=== PATIENT | male | born 1950 | race African-American/Black ===

== ENCOUNTER 2016-08-03 08:43 | Emergency (ER) | payer OTHER ==
[~2016-08-03] VITALS: Wt 95.0 kg
[~2016-08-03 08:43] MED LIST: 0; BICA50TA4 PO; CITA20TA11 PO; FINA5TAB; LOSA25TA5 PO; flomax
[2016-08-03] MEDS: IBUPROFEN 600 MG TAB PO ONE ×2 (10:22→10:23)
[2016-08-03] MEDS ORDERED: HYDROCODONE/APAP (5/325) TAB PO ONE (10:30)
--- NOTE | 2016-08-03 10:38 | ERD ---
ER Documentation Chief Complaint Date/Time DATE: 08/03/16 TIME: 10:18 Chief Complaint LEFT KNEE PAIN X 6 DAYS HPI 66-year-old male complains of left knee pain status post fall 6 days ago. Patient states that he tripped and twisted his left knee while trying to stand up. Patient has been taking aspirin for his left knee pain. Denies any head trauma. Patient has been unable to weight-bear on the left lower extremity since the fall. Denies any fever, chest pain or shortness of breath. Denies paresthesia on the left lower extremity. Patient complained of left knee swelling since the fall and has since subsided. ROS All systems reviewed and are negative except as per history of present illness. Medications Home Meds Active Scripts Acetaminophen* (Tylophen*) 500 Mg Capsule, 1 CAP PO Q6H Y for PAIN AND OR ELEVATED TEMP, #20 CAP Prov:CLAUDIO SPRINGER 08/03/16 Hydrocodone/Acetaminophen (Midway 5-325 Tablet) 1 Each Tablet, 1 TAB PO Q6H Y for PAIN, #14 TAB Prov:CLAUDIO SPRINGER 08/03/16 Reported Medications Finasteride* (Proscar*) 5 Mg Tablet 09/11/13 [flomax] No Conflict Check 09/11/13 Bicalutamide* (Bicalutamide*) 50 Mg Tablet, 50 PO 09/11/13 Losartan Potassium* (Losartan Potassium*) 25 Mg Tablet, PO 09/11/13 Citalopram Hydrobromide* (Celexa*) 20 Mg Tablet, 20 MG PO DAILY for depressioin 09/11/13 [0] No Conflict Check DIDN'T PROVIDE HOME MED LIST UPON ADMISSION 07/10/13 Allergies Allergies: Coded Allergies: No Known Allergies (Verified Allergy, Mild, 08/03/16) PMhx/Soc History of Surgery: Yes (ankle, knee, appendectomy; hernia surgery) Anesthesia Reaction: No Hx Neurological Disorder: No Hx Respiratory Disorders: No Hx Cardiac Disorders: Yes (hypertension) Hx Psychiatric Problems: No Hx Miscellaneous Medical Probl: Yes ( PROSTATE CA) Hx Alcohol Use: Yes (socially) Hx Substance Use: No Hx Tobacco Use: Yes Smoking Status: Current every day smoker Physical Exam Vitals Vital Signs Date Time Temp Pulse Resp B/P Pulse Ox O2 Delivery O2 Flow Rate FiO2 08/03/16 08:45 98.0 109 18 157/82 99 Physical Exam Const: Well-developed, well-nourished, in no acute distress. Sitting in a wheelchair. HEENT: Atraumatic. Normal Conjunctiva. TM intact. External ear is normal, mastoids are nontender clear oropharynx. Supple. Full range of motion. No meningismus. Resp: Clear to auscultation bilaterally Cardio: Regular rate and rhythm, no murmurs Abd: Soft, non tender, non distended. Normal bowel sounds. No McBurney' s point tenderness. No guarding or rigidity. No peritoneal signs. Skin: macular rashes on the distal left leg Back: No midline or flank tenderness Ext: Decreased left knee flexion and extension due to pain. No swelling. Good cap refill on the left toes. Neur: Awake and alert, appropriate for age Results 24 hrs Current Medications Medications (Trade) Dose Ordered Sig/Bart Route PRN Reason Start Time Stop Time Status Last Admin Dose Admin Ibuprofen (Motrin) 600 mg ONCE ONCE PO 08/03/16 10:30 08/03/16 10:31 DC Acetaminophen/ Hydrocodone Bitart (Midway (5/325)) 1 tab ONCE ONCE PO 08/03/16 10:30 08/03/16 10:31 DC 08/03/16 10:55 Procedures/MDM 66-year-old male who was admitted to the emergency department for left knee pain due to trauma. Patient received Midway and left knee x-ray is negative for fracture. Lobito wrap was applied to the left knee. Instructed the patient to keep the left knee elevated at all times and apply ice packs as needed. Patient was discharged home with crutches and a prescription for Midway and ibuprofen. Patient was instructed to see his primary care provider and return to ED for chest pain, shortness of breath, erythema or drainage from the left knee. Differential diagnosis includes left knee fracture, bursitis, cellulitis , joint effusion, septic arthritis. Departure Diagnosis: Primary Impression: Knee pain Laterality: left Chronicity: acute Qualified Code: M25.562 - Acute pain of left knee Additional Impression: Knee injury Encounter type: initial encounter Laterality: left Qualified Code: S89.92XA - Knee injury, left, initial encounter Condition: Good Patient Instructions: Knee Sprain CLAUDIO SPRINGER Aug 03, 2016 10:28
--- NOTE | 2016-08-03 11:45 | RADRPT ---
PROCEDURE: Left knee radiographs. CLINICAL INDICATION: Left knee pain. TECHNIQUE: Three views. Weight bearing. Frontal, lateral, and oblique. COMPARISON: No prior studies are available for comparison. FINDINGS: There is no fracture or dislocation. Vascular calcifications are present consistent with atherosclerosis. Articular surfaces are intact. There is no lytic or blastic lesion. There is no radiopaque foreign body. IMPRESSION: 1. Atherosclerosis. 2. Otherwise normal images of the left knee. RPTAT: QQ .Reynold Rubio MD, Date Time Electronically viewed and signed by .Reynold Rubio MD, on 08/03/2016 11:44 .R/
[2016-08-03] MEDS ORDERED: HYDR-906 PO (12:10)
[2016-08-03] MEDS ORDERED: ACET500C5 PO (12:11)
[2016-08-03 12:45] VITALS: BP 154/86; PULSE 77; RESP 18; TEMP 98
== END 2016-08-03 12:46 | disposition home or self-care (01) ==
LOC: FTE 08:43
DX: S89.92XA Unspecified injury of left lower leg, initial encounter (principal); F17.210 Nicotine dependence, cigarettes, uncomplicated; I10 Essential (primary) hypertension; W01.0XXA Fall on same level from slipping, tripping and stumbling without subsequent striking against object, initial encounter; Y92.9 Unspecified place or not applicable; Z85.46 Personal history of malignant neoplasm of prostate
CPT/HCPCS: 73562

== ENCOUNTER 2016-10-20 11:36 | Emergency (ER) | payer OTHER ==
[~2016-10-20] VITALS: Wt 51.0 kg
[~2016-10-20 11:36] MED LIST changes: +ACET500C5 PO; +HYDR-906 PO
[2016-10-20] MEDS ORDERED: HALOPERIDOL 5 MG INJ IM ONE (12:00)
[2016-10-20] MEDS ORDERED: DIPHTH/TET/ACEL PERTUSS (ADULT) 0.5 ML VIAL IM* ONE (12:00)
[2016-10-20 12:27] LABS: ADD SCAN DIFF NO
[2016-10-20 12:29] LABS: BASOPHILS % 0.3 % (0.0-2.0); EOSINOPHILS % 0.1 % (0.0-7.0); HEMATOCRIT 42.9 % (42.0-52.0); HEMOGLOBIN 14.8 g/dl (14.0-18.0); LYMPHOCYTES # 0.8 10^3/ul (0.8-2.9); LYMPHOCYTES % 8.3 % (15.0-51.0); MEAN CORPUSCULAR HEMOGLOBIN 29.6 pg (29.0-33.0); MEAN CORPUSCULAR HGB CONC 34.5 g/dl (32.0-37.0); MEAN CORPUSCULAR VOLUME 85.8 fl (82.0-101.0); MEAN PLATELET VOLUME 9.8 fl (7.4-10.4); MONOCYTE # 0.9 10^3/ul (0.3-0.9); MONOCYTES % 8.8 % (0.0-11.0); NEUTROPHIL # 8.4 10^3/ul (1.6-7.5); NEUTROPHILS % 82.3 % (39.0-77.0); PLATELET COUNT 150 10^3/UL (140-415); RED CELL DISTRIBUTION WIDTH 13.5 % (11.5-14.5); WHITE BLOOD COUNT 10.2 10^3/ul (4.8-10.8)
[2016-10-20 12:52] LABS: ALBUMIN 4.2 g/dl (3.3-4.9); CHLORIDE 99 mmol/L (97-110)
[2016-10-20 12:53] LABS: POTASSIUM 3.6 mmol/L (3.5-5.1); SODIUM 135 mmol/L (135-144)
[2016-10-20 12:55] LABS: ALANINE AMINOTRANSFERASE 62 IU/L (13-69); ALBUMIN/GLOBULIN RATIO 1.07; ALKALINE PHOSPHATASE 89 IU/L (42-121); ANION GAP 21 (8-16); ASPARTATE AMINO TRANSFERASE 173 IU/L (15-46); BILIRUBIN,INDIRECT 0.2 mg/dl (0-1.1); BILIRUBIN,TOTAL 0.2 mg/dl (0.2-1.3); BLOOD UREA NITROGEN 11 mg/dl (7-20); CALCIUM 8.8 mg/dl (8.4-10.2); CARBON DIOXIDE 19 mmol/L (21-31); CREATININE 0.73 mg/dl (0.61-1.24); GLUCOSE 72 mg/dl (70-220); TOTAL PROTEIN 8.1 g/dl (6.1-8.1)
[2016-10-20 12:56] LABS: ACETAMINOPHEN < 10.0 ug/ml (10.0-30.0); SALICYLATE < 1.0 mg/dl (5.0-30.0)
[2016-10-20 12:58] LABS: INR 1.03; PROTIME 13.5 Sec (12.2-14.2); PT RATIO 1.1
[2016-10-20 13:00] LABS: PARTIAL THROMBOPLASTIN TIME 48.8 Sec (25.0-35.0)
[2016-10-20] MEDS ORDERED: AMLO-147 PO (16:34)
[2016-10-20] MEDS ORDERED: TAMS0.4C2 PO (16:34)
[2016-10-20] MEDS ORDERED: TRAZ50TA18 PO (16:34)
[2016-10-20] MEDS ORDERED: BUPR150T6 PO (16:35)
[2016-10-20 19:34] VITALS: BP 152/92; PULSE 65; RESP 24; TEMP 97.9
--- NOTE | 2016-10-20 19:48 | ERD ---
ER Documentation Chief Complaint Date/Time DATE: 10/20/16 TIME: 19:46 Chief Complaint SEIZURE WITNESSED BY BYSTANDERS WITH ETOH, LEFT HAND LACERATION, BS 65 HPI 66-year-old male who presents altered. He was brought in by ambulance. He is homeless and was found on the ground. His sugar was 65. He had a possible seizure by bystanders. Please note the history and physical exam is limited secondary to the patient's mental status. Review of old medical records show visits for various complaints. ROS All systems reviewed and are negative except as per history of present illness. Medications Home Meds Reported Medications Bupropion Hcl* (Bupropion XL*) 150 Mg Tab.er.24h, 150 MG PO DAILY, TAB.SA 10/20/16 Trazodone Hcl* (Desyrel*) 50 Mg Tab, 50 MG PO QHS, #30 TAB 10/20/16 Tamsulosin Hcl* (Tamsulosin Hcl*) 0.4 Mg Cap.er.24h, 0.4 MG PO HS, CAP 10/20/16 Amlodipine Besylate* (Amlodipine Besylate*) 10 Mg Tablet, 10 MG PO DAILY, #30 TAB 10/20/16 Allergies Allergies: Coded Allergies: No Known Allergy (Unverified , 10/20/16) PMhx/Soc Medical and Surgical Hx: Unable to obtain Hx Psychiatric Problems: Yes Hx Miscellaneous Medical Probl: Yes Hx Alcohol Use: Yes Hx Tobacco Use: No Smoking Status: Never smoker FmHx Unable to obtain Physical Exam Vitals Vital Signs Date Time Temp Pulse Resp B/P Pulse Ox O2 Delivery O2 Flow Rate FiO2 10/20/16 19:34 97.9 65 24 152/92 97 Room Air 10/20/16 16:45 62 24 98 Room Air 10/20/16 13:49 49 95 Room Air 10/20/16 12:04 98.9 122 20 146/89 97 Physical Exam Const: Altered Head: Atraumatic Eyes: Normal Conjunctiva ENT: Normal External Ears, Nose and Mouth. Neck: Full range of motion..~ No meningismus. Resp: Clear to auscultation bilaterally Cardio: Regular rate and rhythm, no murmurs Abd: Soft, non tender, non distended. Normal bowel sounds Skin: Abrasion to the posterior portion of the left hand without laceration Back: No midline or flank tenderness Ext: No cyanosis, or edema Neur: Awake but confused Result Diagram: 10/20/16 1220 10/20/16 1220 Results 24 hrs Laboratory Tests Test 10/20/16 12:20 White Blood Count 10.210^3/ul Red Blood Count 5.0010^6/ul Hemoglobin 14.8g/dl Hematocrit 42.9% Mean Corpuscular Volume 85.8fl Mean Corpuscular Hemoglobin 29.6pg Mean Corpuscular Hemoglobin Concent 34.5g/dl Red Cell Distribution Width 13.5% Platelet Count 66511^3/UL Mean Platelet Volume 9.8fl Neutrophils % 82.3% Lymphocytes % 8.3% Monocytes % 8.8% Eosinophils % 0.1% Basophils % 0.3% Nucleated Red Blood Cells % 0.0/100WBC Neutrophils # 8.410^3/ul Lymphocytes # 0.810^3/ul Monocytes # 0.910^3/ul Eosinophils # 0.010^3/ul Basophils # 0.010^3/ul Nucleated Red Blood Cells # 0.010^3/ul Prothrombin Time 13.5Sec Prothrombin Time Ratio 1.1 INR International Normalized Ratio 1.03 Activated Partial Thromboplast Time 48.8Sec Sodium Level 135mmol/L Potassium Level 3.6mmol/L Chloride Level 99mmol/L Carbon Dioxide Level 19mmol/L Anion Gap 21 Blood Urea Nitrogen 11mg/dl Creatinine 0.73mg/dl Glucose Level 72mg/dl Calcium Level 8.8mg/dl Total Bilirubin 0.2mg/dl Direct Bilirubin 0.00mg/dl Indirect Bilirubin 0.2mg/dl Aspartate Amino Transf (AST/SGOT) 173IU/L Alanine Aminotransferase (ALT/SGPT) 62IU/L Alkaline Phosphatase 89IU/L Total Protein 8.1g/dl Albumin 4.2g/dl Globulin 3.90g/dl Albumin/Globulin Ratio 1.07 Salicylates Level < 1.0mg/dl Acetaminophen Level < 10.0ug/ml Ethyl Alcohol Level 236.0mg/dl Current Medications Medications (Trade) Dose Ordered Sig/Bart Route PRN Reason Start Time Stop Time Status Last Admin Dose Admin Diphtheria/ Tetanus/Acell Pertussis (Adacel) 0.5 ml ONCE ONCE IM* 10/20/16 12:00 10/20/16 12:01 DC 10/20/16 14:13 Haloperidol (Haldol) 5 mg ONCE ONCE IM 10/20/16 12:00 10/20/16 12:01 DC 10/20/16 12:18 Procedures/MDM Patient refused CT scan of the brain. Patient is a 66-year-old male presents with acute alcohol intoxication and acute altered mental status. The patient had laboratory studies done which showed elevated alcohol. He refused a CT scan of the brain. The patient was observed for a number of hours and then family came to pick him up. At this point I doubt intrarenal hemorrhage or mass as the patient has improved from a neurologic standpoint with observation. He did refuse a CT scan of the brain. He did require Haldol upon arrival for sedation to protect himself and to protect staff. He did not have any signs of respiratory compromise. Critical Care: Time: 35 minutes excluding all billable procedures. Treatments/Evaluations: Close monitoring and treatment of unstable vital signs, cardiorespiratory, and neurologic status, while maintaining tight balance of fluid, respiratory, and cardiac interventions. Observation Note: Time: 4 hours Family Hx: Unable to obtain Evaluation: Multiple exams showed improving symptoms and no evidence of clinical decompensation. Departure Diagnosis: Primary Impression: Alcohol intoxication delirium Additional Impressions: Altered level of consciousness Abrasion Condition: Fair Patient Instructions: Abrasion, Altered Loc Referrals: [facility] YOU HAVE RECEIVED A MEDICAL SCREENING EXAM AND THE RESULTS INDICATE THAT YOU DO NOT HAVE A CONDITION THAT REQUIRES URGENT TREATMENT IN THE EMERGENCY DEPARTMENT. FURTHER EVALUATION AND TREATMENT OF YOUR CONDITION CAN WAIT UNTIL YOU ARE SEEN IN YOUR DOCTORS OFFICE WITHIN THE NEXT 1-2 DAYS. IT IS YOUR RESPONSIBILITY TO MAKE AN APPOINTMENT FOR FOLOW-UP CARE. IF YOU HAVE A PRIMARY DOCTOR --you should call your primary doctor and schedule an appointment IF YOU DO NOT HAVE A PRIMARY DOCTOR YOU CAN CALL OUR PHYSICIAN REFERRAL HOTLINE AT IF YOU CAN NOT AFFORD TO SEE A PHYSICIAN YOU CAN CHOSE FROM THE FOLLOWING [facility] [address] [facility] [address] [facility] [facility] [address] [facility] [address] [facility] [place]. [facility] [address] [facility]. [facility] [address] Additional Instructions: Call your primary care doctor TOMORROW for an appointment during the next 1-2 days.See the doctor sooner or return here if your condition worsens before your appointment time. KE PERERA MD October 20, 2016 19:48
== END 2016-10-20 19:35 | disposition home or self-care (01) ==
LOC: MERGE 11:36 → EDBD 11:36 → E/R 11:36
DX: F10.121 Alcohol abuse with intoxication delirium (principal); S60.512A Abrasion of left hand, initial encounter; R40.4 Transient alteration of awareness; R40.2142 Coma scale, eyes open, spontaneous, at arrival to emergency department; R40.2352 Coma scale, best motor response, localizes pain, at arrival to emergency department; R40.2242 Coma scale, best verbal response, confused conversation, at arrival to emergency department; X58.XXXA Exposure to other specified factors, initial encounter; Y92.9 Unspecified place or not applicable; Z23 Encounter for immunization
CPT/HCPCS: 80053; 80306; 85025; 85610; 85730; 90471; 90715; 93005; 96372; 99291; J1630